=== PATIENT | female | born 1965 | race Hispanic/Latino ===

== ENCOUNTER 2022-10-21 05:27 | Emergency (ER) | payer BC ==
[~2022-10-21] VITALS: Ht 152.4 cm; Wt 66.2 kg
[2022-10-21] MEDS ORDERED: KETOROLAC 30MG VIAL (30MG/ML) IVP ONE (06:00)
[2022-10-21] MEDS ORDERED: ONDANSETRON 4MG INJ IVP ONE (06:00)
[2022-10-21] MEDS ORDERED: LIDOCAINE HCL-MPF 2% 5ML VIAL ONE (06:02)
[2022-10-21 06:11] LABS: APPEARANCE,URINE CLEAR (CLEAR); BILIRUBIN,URINE NEGATIVE (NEGATIVE); COLOR,URINE LIGHT-YELLOW (YELLOW); GLUCOSE, URINE (UA) NEGATIVE (NEGATIVE); KETONES,URINE NEGATIVE (NEGATIVE); LEUKOCYTE ESTERASE ,URINE 25 Leu/uL (NEGATIVE); NITRATE,URINE NEGATIVE (NEGATIVE); OCCULT BLOOD,URINE NEGATIVE (NEGATIVE); PH,URINE 5.5 (5.0-8.0); PROTEIN,URINE NEGATIVE (NEGATIVE); UROBILINOGEN,URINE 0.2 mg/dL (0.2-1.0)
[2022-10-21 06:18] LABS: BASOPHILS % (AUTO) 0.6 % (0.0-5.0); EOSINOPHILS % (AUTO) 1.8 % (0.0-8.0); HEMATOCRIT 45.8 % (36-48); MEAN CORPUSCULAR HEMOGLOBIN 30.2 pg (27.0-33.0); MEAN CORPUSCULAR HGB CONC 33.8 g/dL (32.0-36.0); MEAN CORPUSCULAR VOLUME 89.1 fL (79-99); MONOCYTES % (AUTO) 9.1 % (3.0-13.0); NEUTROPHILS % (AUTO) 51.2 % (40.0-77.0); PLATELET COUNT (AUTO) 205 K/uL (130-400); RED BLOOD CELL COUNT(AUTO) 5.14 MIL/uL (4.00-5.50); RED CELL DISTRIBUTION WIDTH 12.6 % (11.0-15.5); WHITE BLOOD COUNT (AUTO) 7.1 K/uL (4.8-10.8)
[2022-10-21 06:26] LABS: RBC,URINE 0-1 /HPF (0-1); SQUAMOUS EPITHELIAL CELL,UR RARE /HPF (0-2)
[2022-10-21 06:30] LABS: INR 0.93 (0.85-1.15); PROTHROMBIN TIME 9.8 SEC (9.6-11.6)
[2022-10-21 06:31] LABS: PARTIAL THROMBOPLASTIN TIME 26.7 SEC (26.3-35.5)
[2022-10-21 07:33] LABS: ALBUMIN 3.6 g/dL (3.5-5.0); CREATININE 0.9 mg/dL (0.5-1.5); TOTAL PROTEIN, SERUM 7.2 g/dL (6.0-8.3)
[2022-10-21] MEDS ORDERED: LIDOCAINE 5% TOPICAL PATCH TP ONE (08:30)
[2022-10-21] MEDS ORDERED: ONDA4TAB10 PO (09:21)
[2022-10-21] MEDS ORDERED: ACET-2079 PO (09:21)
[2022-10-21] MEDS ORDERED: TAMS-1 PO (09:21)
[2022-10-21] MEDS ORDERED: IBUP-2070 PO (09:21)
[2022-10-21 10:47] VITALS: BP 153/66
== END 2022-10-21 10:48 | disposition home or self-care (01) ==
LOC: EDH 05:27
DX: N20.2 Calculus of kidney with calculus of ureter (principal); N20.1 Calculus of ureter; E78.00 Pure hypercholesterolemia, unspecified; Z90.49 Acquired absence of other specified parts of digestive tract; Z90.710 Acquired absence of both cervix and uterus; Z88.1 Allergy status to other antibiotic agents; Z88.2 Allergy status to sulfonamides
CPT/HCPCS: 99284; 74176; 96374; 96375 ×2; 82550; 84484; 80053; 83690; 85025; 85610; 85730; 87040 ×2; 87088; 83605; 81001; 36415; J2405 ×2; J1885; J3490

== ENCOUNTER → 2023-09-03 | Outpatient (CLI) | payer OTHER ==
[~2023-09-03] MED LIST: ACET-2079 PO; IBUP-2070 PO; ONDA4TAB10 PO; TAMS-1 PO
== END | disposition home or self-care (01) ==
LOC: OIH 15:07
PROVIDERS: ATTEND Internal Medicine
DX: Z13.6 Encounter for screening for cardiovascular disorders (principal)
CPT/HCPCS: 75571

== ENCOUNTER → 2023-11-04 | Outpatient (CLI) | payer BC ==
[~2023-11-04] MED LIST changes: +GADOTERATE MEGLUMINE 10 MMOL/20 ML VIAL IV ONE; +ONDA-243 PO; -ONDA4TAB10 PO
== END | disposition home or self-care (01) ==
LOC: RAH 07:47
PROVIDERS: ATTEND Internal Medicine
DX: M47.26 Other spondylosis with radiculopathy, lumbar region (principal); R15.9 Full incontinence of feces
CPT/HCPCS: 72158; A9575

== ENCOUNTER 2024-04-27 09:16 | Emergency (ER) | payer BC ==
[~2024-04-27] VITALS: Ht 152.4 cm; Wt 66.7 kg
[2024-04-27 09:16] VITALS: TEMP 97.8
[~2024-04-27 09:16] MED LIST changes: -GADOTERATE MEGLUMINE 10 MMOL/20 ML VIAL IV ONE
[2024-04-27] MEDS ORDERED: LACTATED RINGERS 1000ML 1,000 ML IV ONE (09:30)
[2024-04-27] MEDS ORDERED: PANTOPrazole 40 MG/VIAL IVP ONE (09:30)
[2024-04-27 09:43] LABS: BASOPHILS # (AUTO) 0.02 K/uL (0.00-0.20); BASOPHILS % (AUTO) 0.3 % (0.0-5.0); EOSINOPHILS # (AUTO) 0.12 K/uL (0.00-0.70); EOSINOPHILS % (AUTO) 1.8 % (0.0-8.0); HEMATOCRIT 45.1 % (36-48); IMMATURE GRANULOCYTE ABSOLUTE 0.02 K/uL (0-1); LYMPHOCYTES # (AUTO) 2.4 K/uL (1.0-4.8); LYMPHOCYTES % (AUTO) 36.3 % (21.0-51.0); MEAN CORPUSCULAR HEMOGLOBIN 30.1 pg (27.0-33.0); MEAN CORPUSCULAR HGB CONC 34.1 g/dL (32.0-36.0); MEAN CORPUSCULAR VOLUME 88.1 fL (79-99); MONOCYTES # (AUTO) 0.5 K/uL (0.1-1.0); MONOCYTES % (AUTO) 7.8 % (3.0-13.0); NEUTROPHILS # (AUTO) 3.5 K/uL (1.8-7.7); NEUTROPHILS % (AUTO) 53.5 % (40.0-77.0); PLATELET COUNT (AUTO) 200 K/uL (130-400); RED BLOOD CELL COUNT(AUTO) 5.12 MIL/uL (4.00-5.50); RED CELL DISTRIBUTION WIDTH 12.9 % (11.0-15.5); WHITE BLOOD COUNT (AUTO) 6.6 K/uL (4.8-10.8)
[2024-04-27 09:52] LABS: CREATININE 0.8 mg/dL (0.5-1.0)
[2024-04-27 09:54] LABS: INR <= 0.93 (0.85-1.15)
[2024-04-27 09:55] LABS: PARTIAL THROMBOPLASTIN TIME 25.6 SEC (26.3-35.5)
[2024-04-27 09:57] LABS: MAGNESIUM 1.9 mg/dL (1.80-2.40)
[2024-04-27 10:12] LABS: B-TYPE NATRIURETIC PEPTIDE 45 pg/mL (0-100)
[2024-04-27] MEDS: ORPHENADRINE 60MG/2ML IM ONE (11:40)
[2024-04-27] MEDS: ketOROlac 30MG VIAL (30MG/ML) IM ONE (11:40)
[2024-04-27 12:54] VITALS: BP 106/60; PULSE 50; RESP 17; O2SAT 100
== END 2024-04-27 13:05 | disposition home or self-care (01) ==
LOC: EDH 09:16
DX: S46.811A Strain of other muscles, fascia and tendons at shoulder and upper arm level, right arm, initial encounter (principal); Z88.1 Allergy status to other antibiotic agents; Z88.2 Allergy status to sulfonamides; Z90.49 Acquired absence of other specified parts of digestive tract; Z90.710 Acquired absence of both cervix and uterus; X58.XXXA Exposure to other specified factors, initial encounter; Y93.89 Activity, other specified; Y92.89 Other specified places as the place of occurrence of the external cause; Y99.8 Other external cause status
CPT/HCPCS: 99284; 71045; 82550; 83735; 84484; 80048; 83880; 85025; 85610; 85730; 36415; 96372 ×2; 93005; J1885; J2470; J7120; J2360

== ENCOUNTER → 2024-05-26 | Outpatient (CLI) | payer BC ==
--- NOTE | 2024-05-27 07:56 | HMCSR ---
APPROVED REPORT EXAM: Two-dimensional and M-mode echocardiogram with Doppler and color Doppler. INDICATION ICD: R06.09 Other forms of dyspnea Chest Pain 2D Dimensions RVDd3.2 cmLVEF(%)66.1 (>50%)LVED Vol(simp.)61.0 mL IVSd0.8 (0.7-1.1cm)FS(%)36 %LVES Vol(simp.)27.0 mL LVDd4.3 (3.8-5.6cm)LA (2D)3.5 (1.6-4.0cm)LVEF(%, simp.)56 % PWd0.8 (0.7-1.1cm)Ao Root(2D)2.7 (2.0-3.7cm)LA ESV INDEX (BP)23.44 mL/m2 LVDs2.8 (2.5-4.0cm)LVOT diam1.8 (1.8-2.4cm) IVC diam1.1 cm Aortic Valve AoV Vmax1.5 m/Priti Peak GR8.6 mmHgLVOT Vmax1.3 m/s AoV VTI0.3 mAo Mean GR4.8 mmHgLVOT VTI0.30 m DIANNA (VMAX)2.3 cm2AVA (VTI) 2.3 cm2 Mitral Valve MV E Vmax73.4 cm/sDECEL Olms539 ms MV A Vmax57.1 cm/s E/A ratio1.3 MR Max PG79 mmHg TDI E/E' Medial9.9E/E' Lateral6.8 Pulmonary Valve PV Vmax0.9 m/sPV VTI0.21 mPV Mean GR2 mmHg PV Peak GR3.4 mmHgPI End Tess. Berto 0.7 cm/s Tricuspid Valve TR Vmax2.5 m/sRAP (EST) 3 [id number] mmHg TR Peak GR25.2 mmHg Left Ventricle The left ventricle structure and function is normal. There is normal LV segmental wall motion. There is normal left ventricular wall thickness. LVEF is 55-60%. Left ventricular filling pattern is normal for age. Right Ventricle The right ventricle is normal size. The right ventricular systolic function is normal. Atria The left atrium size is normal. Atrial septal aneurysm is present. The right atrium size is normal. Aortic Valve Aortic valve is trileaflet. Aortic valve leaflets are sclerotic but open well. Trace aortic regurgita tion. There is no aortic valvular stenosis. Mitral Valve Mitral valve leaflets appear normal. Mitral regurgitation is trace to mild. There is no mitral valve stenosis. Tricuspid Valve The tricuspid valve leaflets appear normal. There is trace to mild tricuspid regurgitation. Pulmonic Valve The pulmonic valve leaflets are thin and pliable; valve motion is normal. There is trace pulmonic bobby vular regurgitation. Great Vessels The aortic root is normal in size. The IVC is normal in size and collapses >50% with inspiration. Pericardium No pericardial effusion. Conclusion LVEF is 55-60%. Left ventricular filling pattern is normal for age. There is normal LV segmental wall motion. The aortic root is normal in size. No pericardial effusion.
== END | disposition home or self-care (01) ==
LOC: SHCH 13:37
PROVIDERS: ATTEND Internal Medicine Cardiovascular Disease
DX: I08.3 Combined rheumatic disorders of mitral, aortic and tricuspid valves (principal); R06.09 Other forms of dyspnea; R07.9 Chest pain, unspecified; I87.2 Venous insufficiency (chronic) (peripheral)
CPT/HCPCS: 93306